=== PATIENT | female | born 2000 | race Caucasian/White ===

== ENCOUNTER 2020-03-25 23:14 | Emergency (ER) | payer BC, SELFPAY ==
[2020-03-25 23:10] VITALS: BP 140/75; PULSE 97; RESP 18; TEMP 36.9; O2SAT 98
[2020-03-25 23:20] VITALS: PULSE 97; RESP 18; O2SAT 99
--- NOTE | 2020-03-25 23:22 | ECG_ITS ---
Measurements Intervals [place] Rate: 90 P: 30 DC: 150 QRS: 67 QRSD: 96 T: 1 QT: 350 QTc: 430 Interpretive Statements SINUS RHYTHM BORDERLINE ST-T WAVE ABNORMALITY- ANT/INF LEADS BORDERLINE ECG Electronically Signed On 03-26-2020 6:53:05 [employer] by Ronnie Chin D.O.
--- NOTE | 2020-03-25 23:23 | ED.SEIZURE ---
HPI - Seizure General Chief Complaint: Seizure Stated Complaint: seizure Source: patient Mode of arrival: EMS Limitations: no limitations History of Present Illness HPI Narrative: A 19-year-old female comes into the emergency department tonight with complaints of a seizure. Patient states that this happened just prior to arrival. She is now feeling back to her normal self. Patient does note that she does have a history of seizures. 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 Patient is following with a neurologist at [facility]. She is currently taking Keppra and Lamictal and has been having her dosages adjusted. Patient notes that she is suffering from excessive fatigue from the Keppra and therefore this is being weaned off and she is being increased on her Lamictal. Patient denies any other medication changes. Related Data Home Medications Medication Instructions Recorded Confirmed lamotrigine [Lamictal] 03/25/20 levetiracetam [Keppra] PO 03/25/20 Allergies Allergy/AdvReac Type Severity Reaction Status Date / Time No Known Allergies Allergy Verified 03/25/20 23:22 Review of Systems Review of Systems: Narrative: CONSTITUTIONAL: Denies fever, chills, or sweats. EYES: Denies visual changes, redness, or discharge. ENT: Denies rhinorrhea, congestion, sore throat, or otalgia. CARDIOVASCULAR: Denies chest pain, palpitations, or edema. RESPIRATORY: Denies cough or dyspnea. GASTROINTESTINAL: Denies abdominal pain, nausea, vomiting, or diarrhea. GENITOURINARY: Denies dysuria or hematuria. SKIN: Denies rash or itching. MUSCULOSKELETAL: Denies back pain, joint pain, or myalgia. NEUROLOGIC: Denies headache, numbness, dizziness, or weakness. PSYCHIATRIC: Denies anxiety or depression. PMFSH Past Medical History Medical History Seizure disorder Social History Social History Smoking status: Never smoker Alcohol intake: never Substance use: never Exam Narrative: Exam Narrative: GENERAL: Well-appearing, well-nourished, and in no acute distress. HEAD: Normocephalic, atraumatic. EYES: PERRLA and EOMI. ENT: Nares clear, no rhinorrhea or epistaxis. Mucous membranes moist. Oropharynx without tonsillar hypertrophy exudate or other lesions. Bilateral TMs pearly kowalski nonbulging NECK: Supple. No adenopathy or masses. No carotid bruits or JVD CHEST: Clear to auscultation. No respiratory distress. No wheezes rales or rhonchi HEART: Regular rate and rhythm. No murmur heard. Normal peripheral pulses. ABDOMEN: Soft, nontender, nondistended, normal active bowel sounds. EXTREMITIES: Normal range of motion. No edema. SKIN: Warm, dry, no rash. NEURO: No focal deficits. Alert and oriented x3. PSYCH: Normal mood and affect. Course Reevaluation(s) Reevaluation #1: Patient is resting comfortably in the bed. She has had no further neurologic/seizure activity. Patient's mother is present. Discussed evaluation and work-up with the patient's mother. They have no further questions at this time. We will go ahead and plan for discharge. As the patient did have another seizure I recommended she go back up to her previous dose of Keppra and notify her neurologist. Time: 00:52 Vital Signs Vital signs: Vital Signs Temperature 36.9 C 03/25/20 23:10 Pulse Rate 97 03/25/20 23:10 Respiratory Rate 18 03/25/20 23:10 Blood Pressure 140/75 03/25/20 23:10 Pulse Oximetry 98 03/25/20 23:10 Temperature 36.9 C 03/25/20 23:10 Pulse Rate 84 03/26/20 01:08 Respiratory Rate 19 03/26/20 01:08 Blood Pressure 135/73 03/26/20 01:08 Pulse Oximetry 100 03/26/20 01:08 MDM - Seizure MDM Narrative Medical decision making narrative: In brief this is a 19-year-old female with a history of seizure disorder who came in [facility] with a seizure. She
[2020-03-25 23:30] VITALS: PULSE 91
[2020-03-25 23:37] LABS: Basophils Absolute Auto 0.1 K/mm3 (0.0-0.1); Basophils Percent Auto 0.9 % (0.2-1.2); Eosinophils Percent Auto 0.7 % (0-4.4); Hematocrit 36.2 % (37.0-47.0); Hemoglobin 12.7 g/dL (12.0-15.0); Immature Granulocyte Absolute 0.01 K/mm3 (0.00-0.031); Immature Granulocyte Percent A 0.2 % (0-0.5); Lymphocytes Absolute Auto 1.63 K/mm3 (0.9-3.2); Lymphocytes Percent Auto 28.7 % (18.3-44.2); Mean Corpuscular HGB Conc 35.1 g/dl (32-36); Mean Corpuscular Hemoglobin 31.8 pg (26-34); Mean Corpuscular Volume 90.7 fl (80-100); Mean Platelet Volume 10.2 fl (7.4-10.4); Monocytes Absolute Auto 0.3 K/mm3 (0.1-0.6); Monocytes Percent Auto 5.1 % (2.6-8.5); Neutrophils Absolute Auto 3.7 K/mm3 (1.3-6.7); Neutrophils Percent Auto 64.4 % (45.5-73.1); Platelet Count Result 141 k/mm3 (150-375); Red Blood Count 3.99 M/mm3 (4.2-5.4); Red Cell Distribution Width 11.9 % (11.5-14.5); White Blood Count 5.7 K/mm3 (4.5-10.0)
[2020-03-25 23:48] LABS: Alanine Aminotransferase 14 U/L (4-35); Albumin Level 4.4 g/dL (3.7-5.6); Alkaline Phosphatase 36 U/L (45-116); Anion Gap 7 mmol/L (8-16); Aspartate Amino Transferase 21 U/L (14-36); Bilirubin,Total 0.3 mg/dL (0.2-1.3); Blood Urea Nitrogen 15 mg/dL (8-21); Calcium 9.2 mg/dL (8.9-10.7); Carbon Dioxide 24 mmol/L (22-30); Chloride 106 mmol/L (98-107); Estimated Glomerular Filt Rate > 60; Glucose 137 mg/dL (65-105); Magnesium 1.7 mg/dL (1.6-2.3); Potassium 3.7 mmol/L (3.4-5.0); Sodium 137 mmol/L (134-143)
[2020-03-25 23:59] VITALS: PULSE 91; O2SAT 100
[2020-03-26] VITALS: PULSE 95; RESP 22; O2SAT 100
[2020-03-26 00:21] LABS: Add Urine Microscopic? YES; Appearance Urine Cloudy (Clear); Bacteria Urine 1+ /hpf; Bilirubin Urine Negative (Negative); Blood Urine Negative (Negative); Color Urine Yellow (Yellow); Glucose Urine UA Negative (Negative); Ketones Urine Negative (Negative); Leukocyte Esterase Ur Negative LEU/UL (Negative); Mucus Urine Rare /lpf; Nitrate Urine Negative (Negative); Protein Urine 2+ mg/dL (Negative); RBC Urine 0-2 /hpf (0-2); Specific Grav Ur 1.015 (1.001-1.035); Squamous Epithelial Cell Urine Many /hpf (Few); Urobilinogen Urine Negative mg/dL (<2.0); WBC Urine 0-3 /hpf
[2020-03-26] MEDS: KETOROLAC 15 MG/ML VIAL (*BKC) IV PUSH (00:24)
[2020-03-26 00:37] VITALS: PULSE 85; RESP 22; O2SAT 100
[2020-03-26 00:44] LABS: Amphetamine Screen Urine Negative (Negative); Barbiturate Screen Urine Negative (Negative); Benzodiazepines Screen Urine Negative (Negative); Cannabinoid Screen Urine Negative (Negative); Cocaine Screen Urine Negative (Negative); Methadone Screen Urine Negative (Negative); Opiate Screen Urine Negative (Negative); Phencyclidine Screen Urine Negative (Negative)
[2020-03-26 00:45] VITALS: PULSE 84; RESP 15; O2SAT 100
[2020-03-26] MEDS: ACETAMINOPHEN 500 MG TABLET 1000 MG PO (00:59)
[2020-03-26 01:08] VITALS: BP 135/73; PULSE 84; RESP 19; O2SAT 100
== END 2020-03-26 01:10 | disposition home or self-care (01) ==
PROVIDERS: Emergency Provider Emergency Medicine
DX: G40.909 Epilepsy, unspecified, not intractable, without status epilepticus (principal); R94.31 Abnormal electrocardiogram [ECG] [EKG]
CPT/HCPCS: 36415; 80053; 80307; 81001; 81025; 83735; 85025; 93005; 96374; 99284; A9270; J1885